=== PATIENT | female | born 1965 | race Two or more races ===

== ENCOUNTER 2017-07-22 09:18 | Emergency (ER) | payer OTHER ==
[2017-07-22 09:29] VITALS: BP 144/87
--- NOTE | 2017-07-22 09:35 | UC ---
Respiratory Complaint HPI - HPI Summary HPI Summary: worsening cough over the past 5 days---up all night coughing low grade temp some nasal drainage - History of Current Complaint Chief Complaint: UCRespiratory Stated Complaint: CONGESTION COUGH Time Seen by Provider: 07/22/17 09:33 Hx Obtained From: Patient Hx Last Menstrual Period: 07/20/17 ?: No Onset/Duration: Sudden Onset, Lasting Days - 5, Worse Since - past 3 days Timing: Constant Severity Initially: Moderate Severity Currently: Moderate Character: Cough: Productive, Sputum Description: - green Aggravating Factors: Deep Breaths, Recumbent Position Alleviating Factors: Bronchodilator Associated Signs And Symptoms: Positive: Fever, Pleuritic Chest Pain, Wheezing, URI - Allergies/Home Medications Allergies/Adverse Reactions: Allergies Allergy/AdvReac Type Severity Reaction Status Date / Time Hydromorphone [From Dilaudid] Allergy Unknown Hives Verified 07/22/17 09:29 Ciprofloxacin [From Cipro] Allergy Headache Verified 07/22/17 09:29 Penicillins Allergy Hives Verified 07/22/17 09:29 Hydrocodone AdvReac Unknown Vomiting Verified 07/22/17 09:29 Tapentadol [From Nucynta] AdvReac Unknown "ants Verified 07/22/17 09:29 crawling under skin" Hazelnuts Allergy Unknown Hives Uncoded 07/22/17 09:29 Kiwi Allergy Unknown HIVES/ITCHI Uncoded 07/22/17 09:29 NG Strawberries Allergy Unknown Hives Uncoded 07/22/17 09:29 Cold Exposure AdvReac Mild Hives Uncoded 07/22/17 09:29 PMH/Surg Hx/FS Hx/Imm Hx Previously Healthy: No Endocrine History: Hypothyroidism Cardiovascular History: Hypertension GI/ History: Gastroesophageal Reflux Neurological History: Other Other Neurological History: MS Psychological History: Depression - Surgical History Surgical History: Yes Surgery Procedure, Year, and Place: Cholecystectomy 1996; T&A 1968 - Family History Known Family History: Positive: None - Social History Occupation: Disabled Lives: With Family Alcohol Use: None Substance Use Type: None Substance Use Comment - Amount & Last Used: Medical Smoking Status (MU): Never Smoked Tobacco Have You Smoked in the Last Year: No - Immunization History Most Recent Influenza Vaccination: 07/2017 Review of Systems Constitutional: Fever, Fatigue Skin: Negative Eyes: Negative ENT: Nasal Discharge Respiratory: Cough Cardiovascular: Negative Gastrointestinal: Negative Genitourinary: Negative Motor: Negative Neurovascular: Negative Musculoskeletal: Negative Neurological: Negative Psychological: Negative Is Patient Immunocompromised?: No All Other Systems Reviewed And Are Negative: Yes Physical Exam Triage Information Reviewed: Yes Appearance: No Pain Distress, Ill-Appearing, Obese Vital Signs: Initial Vital Signs Temp 98.2 F 07/22/17 09:23 Pulse 99 07/22/17 09:23 Resp 16 07/22/17 09:23 BP 144/87 07/22/17 09:23 Pulse Ox 99 07/22/17 09:23 Vital Signs Reviewed: Yes Eye Exam: Normal Eyes: Positive: Conjunctiva Clear ENT Exam: Normal ENT: Positive: Normal ENT inspection, Hearing grossly normal, Pharynx normal, Nasal congestion, TMs normal, Uvula midline. Negative: Tonsillar swelling, Tonsillar exudate, Trismus, Hoarse voice, Dental tenderness, Sinus tenderness Dental Exam: Normal Neck exam: Normal Neck: Positive: Supple, Nontender, No Lymphadenopathy Respiratory Exam: Normal Respiratory: Positive: Chest non-tender, Lungs clear, Normal breath sounds, No respiratory distress, No accessory muscle use Cardiovascular Exam: Normal Cardiovascular: Positive: RRR, No Murmur, Pulses Normal, Brisk Capillary Refill Musculoskeletal Exam: Normal Musculoskeletal: Positive: Strength Intact, ROM Intact, No Edema Neurological Exam: Normal Neurological: Positive: Alert, Muscle Tone Normal Psychological Exam: Normal Skin Exam: Normal UC Diagnostic Evaluation - Laboratory O2 Sat by Pulse Oximetry: 99 Respiratory Course/Dx - Course Course Of Treatment: increase frequency of bronchodilator, add zithromax, increase fluids follow with pcp - Differential Dx/Diagnosis Provider Diagnoses: Acute Bronchitis, Bronchospasm, Hypertension in Poor control Discharge - Discharge Plan Condition: Stable Disposition: HOME Prescriptions: Azithromycin TAB* [Zithromax TAB (Z-JENNY) 250 mg #6 tabs] 2 tab PO .TODAY, THEN 1 DAILY #6 tab Patient Education Materials: Acute Bronchitis (ED), Hypertension (ED), Bronchospasm (ED) Referrals: Suzanne Spivey MD [Primary Care Provider] - 2 Weeks
== END 2017-07-22 09:55 | disposition home or self-care (01) ==
LOC: UCEAST 09:18
DX: J20.9 Acute bronchitis, unspecified (principal); I10 Essential (primary) hypertension
CPT/HCPCS: 99212; G0463

== ENCOUNTER 2019-08-17 17:03 | Emergency (ER) | payer OTHER ==
--- OUTSIDE RECORDS SUMMARY | 2019-08-17 17:10 | XMS REPORT | Continuity of Care Document ---
:1965 External Reference #:[id number] Author Name Twin Villafuerte MD Address [facility] [place] [address] Care Team Providers Name Role Phone Dilia Akbar MD - Family Medicine Care Team Information Welt Beater [phone] Problems Active Problems Provider Date Hypothyroidism Onset: 09/12/2015 Melanocytic nevus Onset: 07/26/2015 Perimenopausal disorder Onset: 07/22/2015 Obsessive-compulsive disorder Onset: 11/26/2014 Endometritis Onset: 11/26/2014 Enthesopathy of elbow region Onset: 11/26/2014 Edema Onset: 11/26/2014 Allergy Onset: 11/26/2014 Hyperlipidemia Onset: 11/16/2014 Obesity Onset: 11/16/2014 Acute transverse myelitis Onset: 11/16/2014 Allergic asthma without status asthmaticus Onset: 11/16/2014 Gastroesophageal reflux disease Onset: 11/16/2014 Sleep disorder Onset: 11/16/2014 H/O: anemia - iron deficient Onset: 11/16/2014 Obstructive sleep apnea syndrome Leanne Mobley NP Onset: 09/28/2016 Hypersomnia Leanne Mobley NP Onset: 09/28/2016 Disturbance in sleep behavior Keysha Sandoval MD Onset: 08/09/2016 Morbid obesity Keysha Sandoval MD Onset: 08/09/2016 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 Immunologic Adam Schumacher MD Onset: 12/09/2014 Generalized anxiety disorder Adam Schumacher MD Onset: 12/09/2014 Idiopathic transverse myelitis Amanda Jones MD Onset: 10/20/2014 Celiac disease Twin Villafuerte MD Onset: 01/08/2018 Screening for malignant neoplasm of colon Twin Villafuerte MD Onset: 2017 Flatulence, eructation and gas pain Twin Villafuerte MD Onset: 04/22/2019 Social History Type Date Description Comments Sex Unknown Tobacco Use Start: Unknown Patient has never smoked Smoking Status Reviewed: 04/22/19 Patient has never smoked Allergies, Adverse Reactions, Alerts Active Allergies Reaction Severity Comments Date Codeine 01/23/2012 Copaxone 10/31/2017 Dog Dander Extract eye redness, wheezing 03/19/2019 Ciprofloxacin hives, nausea 08/19/2009 Penicillin 01/23/2012 Hazelnut Allergenic Extract hives, itching 03/19/2019 Cefdinir 01/23/2012 Honeydew Melon Allergenic Extract hives, itching 03/19/2019 Kiwi Fruit Extract hives, itching 03/19/2019 Medications Active Medications SIG Qnty Indications Ordering Date Provider Peg 3350/Electrolytes use as directed 4000ml Twin Snow 07/13/2019 MD Christo 240gm Solution Rec Plaquenil 1 by mouth every day 60tabs R76.0 Edgar Gallo, 12/06/2017 200mg Tablets for 1 week then 2 by MD mouth daily ongoing Embeda Take 1 Capsule By Unknown 20-0.8mg Capsules Mouth Twice A Day as ER Needed Levocetirizine Take 1 Tablet By Unknown Dihydrochloride Mouth Every Day 5mg Tablets [facility] High-Potency Unknown Vitamin D 1000Unit Tablets Proair HFA Unknown 108(90Base) mcg/Act Aerosol Pronutrients Vitamin 3000 Iu a day Unknown D3 1000Unit Capsules Tylenol Extra Strength 1 po bid prn Unknown 500mg Tablets Paroxetine HCL Take 1 Tablet By Unknown 40mg Mouth Every Day Tablets Ferrous Sulfate Unknown 325(65Fe) mg Tablets Levothyroxine Sodium Take 1 Tablet By Unknown Mouth Every Day 50mcg Tablets Morphine Sulfate Take 1/2 Tablet By Unknown 30mg Mouth Every Four Tablets Hours as Needed For Pain Simvastatin Take 1 Tablet By Unknown 5mg Tablets Mouth Every Day Vitamin C 2 po qd Unknown 1000mg Tablets Alprazolam Take 1 Or 2 Tablets Unknown 0.5mg Tablets By Mouth Every Day as Needed For Panic Attack Dronabinol Take 1 Capsule By Unknown 2.5mg Capsules Mouth Twice A Day as Needed Aspirin 81 Take 1 tablet every Unknown 81mg Tablets day by oral route. Cyclobenzaprine HCL Take 1 Tablet By Unknown 10mg Mouth 3 Times Daily Tablets as Needed For Spasms Simvastatin Daily Unknown 5mg Tablets Vitamin C 1500 mg/day Unknown 1000mg Tablets Tylenol Extra Strength as needed Unknown 500mg Tablets Ventolin HFA ProAir HFA 90 Unknown 108(90Base) mcg/actuation mcg/Act Aerosol aerosol inhaler 2 puffs Q2h/prn Esomeprazole Magnesium Nexium 40 mg Unknown capsule,delayed 40mg Capsules DR release Take 1 capsule every day by oral route for 90 days. Proair HFA ProAir HFA 90 Unknown 108(90Base) mcg/actuation mcg/Act Aerosol aerosol inhaler Paroxetine HCL paroxetine 40 mg Unknown 40mg tablet Tablets Levothyroxine Sodium levothyroxine 50 mcg Unknown tablet 50mcg Tablets Marinol dronabinol 2.5 mg Unknown 2.5mg Capsules capsule Morphine Sulfate Up To 6 Times A Day Hua Betancourt 15mg , Tablets Levocetirizine Unknown Dihydrochloride 5mg Tablets History Medications Colyte With Flavor by mouth as 4000ml K90.0 Twin Villafuerte, 04/22/2019 - Packs directed 04/25/2019 240gm Solution Rec Medications Administered in Office Medication SIG Qnty Indications Ordering Provider Date Influenza Unknown 07/03/2018 Injection Influenza Unknown 07/25/2017 Injection Immunizations CPT Code Status Date Vaccine Lot # [id number] Given 07/22/2015 Influenza Virus Vaccine, Quadrivalent, Split, Preservative Free 33043 Given 09/02/2012 Pneumovax 81967 Given 09/02/2009 Tetanus, Diphtheria Toxoids/Acellular Pertussis Vaccine 7 Or > Vital Signs Date Vital Result Comment 04/22/2019 11:03am Height 61.5 inches 5'1.50" Weight 260.00 lb BP Systolic 137 mmHg BP Diastolic 89 mmHg Heart Rate 93 /min BMI (Body Mass Index) 48.3 kg/m2 01/08/2018 9:14am Height 60.75 inches 5'0.75" Weight 252.00 lb BP Systolic 152 mmHg BP Diastolic 75 mmHg Heart Rate 94 /min BMI (Body Mass Index) 48.0 kg/m2 Results Test Acquired Date Facility Test Result H/L Range Note Laboratory test 07/16/2019 [facility] Surgical SEE RESULT 1, 2 finding Pathology Order BELOW 1 [id number] 2 SEE RESULT BELOW Name: SADA SAUER : [address]: Twin Villafuerte MD Acct: [id number] Unit: [id number] AGE: 53 [facility] SEX: F Status: FATOU REF SPEC: [id number] MURTAZA: 07/16/19- SUBM DR: Twin Villafuerte MD REQ: [id number] RECD: 07/16/19 STATUS: DERICK ABREU DR: Dilia Akbar MD _ ORDERED: LEVEL 4 COMMENTS: [id number] FINAL DIAGNOSIS Duodenum, biopsy: -- Benign small intestinal mucosa with no significant pathologic abnormalities. -- No evidence of villous blunting or increased intraepithelial lymphocytes. CLINICAL HISTORY Screening/Surveillance for malignancy in asymptomatic patient; positive celiac antibody POST-OPERATIVE DIAGNOSIS EGD: esophagus - normal; gastric - normal; duodenum - normal; biopsy; colonoscopy: to cecum; poor prep; normal GROSS DESCRIPTION The specimen is received in formalin labeled, Biopsy Duodenum, and consists of a 0.5 x 0.4 x 0.2 cm aggregate of colon-pink irregular soft tissue fragments which is submitted entirely in one cassette. Signed by and Reported on: Verna Reagan MD 07/17/19 1409 END OF REPORT DEPARTMENT OF PATHOLOGY, [address] [place] [address] Damon Apodaca M.D. Director [facility] # [id number] Procedures Description No Information Available Medical Devices Description No Information Available Encounters Type Date Location Provider Dx Diagnosis Office Visit 04/22/2019 Gastroenterology Twin Snow K90.0 [facility] R14.0 Abdominal distension (gaseous) Assessments Date Code Description Provider 04/22/2019 K90.0 Celiac disease Twin Villafuerte MD 04/22/2019 R14.0 Abdominal distension (gaseous) Twin Villafuerte MD Plan of Treatment 04/22/2019 - Twin Villafuerte MDK90.0 Celiac diseaseNew Medication:Colyte With Flavor Packs 240 gm - by mouth as directedComments:RISKS AND BENEFITS OF THE PROCEDURE WERE DISCUSSED WITH PATIENT. I had another long discussion with the patient regarding screening strategies for colorectal cancer. We also had an extensive discussion regarding prep strategies. She does need an EGD with biopsies to evaluate her celiac antibodiesbeing positive additionally she has never had a colonoscopy she does need one. I will make arrangements for it in the very near future.R14.0 Abdominal distension (gaseous) Functional Status Description No Information Available Mental Status Description No Information Available Referrals Description No Information Available
[2019-08-17 17:24] VITALS: BP 124/69
--- NOTE | 2019-08-17 18:08 | UC ---
Lower Extremity/Ankle HPI - HPI Summary HPI Summary: 53 year old female with multiple PMH including MS, Sciatica presents with right knee pain x 1 month. Started while using rowing machine, medial side of knee radiating posteriorly. Denies swelling. WOrse with bending, climbing stairs, getting in and out of car. Occasional feeling of getting "Stuck", clicking. worse with twisting motions. no trauma, knee pain in past. - History of Current Complaint Chief Complaint: UCLowerExtremity Stated Complaint: KNEE PAIN Time Seen by Provider: 08/17/19 17:35 Hx Obtained From: Patient, Family/Disbursement Clerk Hx Last Menstrual Period: 07/18/19 ?: No Onset/Duration: Sudden Onset, Lasting Weeks - 1 month Severity Initially: Moderate Severity Currently: Moderate Pain Intensity: 5 Pain Scale Used: 0-10 Numeric Aggravating Factor(s): Other - bending Alleviating Factor(s): Rest Able to Bear Weight: Yes - Allergies/Home Medications Allergies/Adverse Reactions: Allergies Allergy/AdvReac Type Severity Reaction Status Date / Time cefdinir Allergy Rash Verified 08/17/19 17:25 ciprofloxacin Allergy Headache Verified 08/17/19 17:25 codeine Allergy Nausea And Verified 08/17/19 17:25 Vomiting glatiramer (copolymer 1) Allergy Unknown Verified 08/17/19 17:25 [From Copaxone] Reaction Details hydrocodone Allergy Vomiting Verified 08/17/19 17:25 hydromorphone Allergy Hives Verified 08/17/19 17:25 Penicillins Allergy Hives Verified 08/17/19 17:25 tapentadol Allergy crawling Verified 08/17/19 17:25 skin Hazelnuts Allergy Unknown Hives Uncoded 07/09/19 14:14 Kiwi Allergy Unknown HIVES/ITCHI Uncoded 07/09/19 14:14 NG Strawberries Allergy Unknown Hives Uncoded 07/09/19 14:14 Cold Exposure AdvReac Mild Hives Uncoded 07/09/19 14:14 PMH/Surg Hx/FS Hx/Imm Hx Previously Healthy: No - MS, sciatica - Surgical History Surgical History: Yes Surgery Procedure, Year, and Place: Cholecystectomy 1996;. T&A 1968; - Family History Known Family History: Positive: None - Social History Alcohol Use: None Substance Use Type: None Substance Use Comment - Amount & Last Used: morphine and marinol Smoking Status (MU): Never Smoked Tobacco Have You Smoked in the Last Year: No - Immunization History Most Recent Influenza Vaccination: 07/2017 Review of Systems All Other Systems Reviewed And Are Negative: Yes Constitutional: Positive: Negative Musculoskeletal: Positive: Arthralgia, Decreased ROM Is Patient Immunocompromised?: No Physical Exam Triage Information Reviewed: Yes Appearance: Well-Appearing, No Pain Distress, Well-Nourished Vital Signs: Initial Vital Signs Temp 97.7 F 08/17/19 17:18 Pulse 96 08/17/19 17:18 Resp 16 08/17/19 17:18 BP 124/69 08/17/19 17:18 Pulse Ox 99 08/17/19 17:18 Vital Signs Reviewed: Yes Eyes: Positive: Conjunctiva Clear ENT: Positive: Hearing grossly normal Musculoskeletal: Positive: Strength Intact - RIght knee: flex/ ext = B/L, ROM Intact - 0-110, Edema @ - b/l LE edema. patient states baseline., Other: - minimal joint effusion, right knee. + medial joint line tenderness right, + vamsi Right, neg pain with alina/ angel stressing, neg ACL/ PCL. no lateral joint line, femo cond, patella appreh, patellar grind negative. Neurological: Positive: Other: - SITLT distal to knee RIght Psychological: Positive: Normal Response To Family Skin Exam: Normal Skin: Positive: Other - no open wounds, sores. Lower Extremity Course/Dx - Course Course Of Treatment: Probably Meniscal injury - Follow up with ortho or sports medicine for further treatment - Rest, ice elevation to prevent swelling, help with pain - OK to do exercises, limit to no bending greater than 90 degrees - Differential Dx/Diagnosis Differential Diagnosis/HQI/PQRI: Osteomyelitis, Sprain, Strain, Tendonitis Provider Diagnosis: Meniscal injury, Right knee injury Discharge ED - Sign-Out/Discharge Documenting (check all that apply): Patient Departure All imaging exams completed and their final reports reviewed: Yes - Discharge Plan Condition: Good Disposition: HOME Patient Education Materials: Meniscus Tear (ED) Referrals: Bandar Diaz MD [Medical Doctor] - Dilia Ying MD [Primary Care Provider] - Kelsie Gutierrez MD [Medical Doctor] - (Follow up within 1-2 weeks if continued pain ) Additional Instructions: Probably Meniscal injury - Follow up with ortho or sports medicine for further treatment - Rest, ice elevation to prevent swelling, help with pain - OK to do exercises, limit to no bending greater than 90 degrees - Billing Disposition and Condition Condition: GOOD Disposition: Home
== END 2019-08-17 18:25 | disposition home or self-care (01) ==
LOC: UCEAST 17:03
DX: S89.91XA Unspecified injury of right lower leg, initial encounter (principal); G35 Multiple sclerosis; M54.30 Sciatica, unspecified side; Z88.1 Allergy status to other antibiotic agents; Z88.5 Allergy status to narcotic agent; Z88.8 Allergy status to other drugs, medicaments and biological substances; Z91.09 Other allergy status, other than to drugs and biological substances; Z91.018 Allergy to other foods; X58.XXXA Exposure to other specified factors, initial encounter; Y92.9 Unspecified place or not applicable
CPT/HCPCS: 99211; G0463